=== PATIENT | female | born 1940 | race Caucasian/White ===

== ENCOUNTER 2018-05-11 10:43 | Emergency (ER) | payer OTHER ==
[2018-05-11] MEDS: KETOROLAC 15 MG INJ IV (11:58)
[2018-05-11] MEDS: ONDANSETRON 4 MG INJ IV (11:58)
[2018-05-11] MEDS: morphine 4 MG/ML VIAL IV (11:59)
== END 2018-05-11 13:05 | disposition home or self-care (01) ==
LOC: E/R 10:43
DX: S39.012A Strain of muscle, fascia and tendon of lower back, initial encounter (principal); I16.0 Hypertensive urgency; I10 Essential (primary) hypertension; X50.0XXA Overexertion from strenuous movement or load, initial encounter; Y92.9 Unspecified place or not applicable; Z79.84 Long term (current) use of oral hypoglycemic drugs; Z79.82 Long term (current) use of aspirin
CPT/HCPCS: 96374; 96375; 99284-25

== ENCOUNTER 2018-12-13 10:26 | Emergency (ER) | payer OTHER | END 2018-12-13 12:05 | disposition home or self-care (01) | LOC: FTE 10:26 | DX: R05 Cough (principal); I10 Essential (primary) hypertension; Z79.82 Long term (current) use of aspirin; Z79.84 Long term (current) use of oral hypoglycemic drugs | CPT/HCPCS: 71045; 99283-25 ==